=== PATIENT | male | born 1935 | race Caucasian/White ===

== ENCOUNTER 2018-10-05 11:09 | Inpatient (IN) | payer BC, MEDICARE ==
[~2018-10-05] VITALS: Ht 167.6 cm; Wt 54.9 kg
[2018-10-05 11:40] LABS: BASOPHILS # (AUTO) 0.1 /CMM (0.0-0.2); BASOPHILS % (AUTO) 0.8 % (0.0-2.0); EOSINOPHILS % (AUTO) 2.2 % (0.0-6.0); HEMATOCRIT 45 % (39-51); HEMOGLOBIN 14.7 g/dL (13.5-17.5); LYMPHOCYTES # (AUTO) 0.9 /CMM (0.8-4.8); LYMPHOCYTES % (AUTO) 11.2 % (20.0-44.0); MEAN CORPUSCULAR HGB CONC 32 g/dl (31.0-36.0); MEAN CORPUSCULAR VOLUME 93 fL (80-96); MONOCYTES # (AUTO) 0.7 /CMM (0.1-1.30); MONOCYTES % (AUTO) 8.1 % (2.0-12.0); NEUTROPHILS # (AUTO) 6.5 /CMM (1.8-8.9); NEUTROPHILS % (AUTO) 77.7 % (43.0-81.0); PLATELET COUNT (AUTO) 236 /CMM (150-450); RED BLOOD CELL COUNT(AUTO) 4.87 MIL/uL (4.5-6.0); WHITE BLOOD COUNT (AUTO) 8.4 K/uL (4.3-11.0)
--- NOTE | 2018-10-05 11:42 | NUR ---
1130 Initial contact with pt no acute distress s/p mechanical fall from home per RA no LOC , pt on Plavix daily denies chest pain, SOB , placed on nurse monitoring waiting for MD beebe - at bedside
[2018-10-05 11:57] LABS: ALANINE AMINOTRANSFERASE 50 U/L (12-78); ALKALINE PHOSPHATASE 103 U/L (46-116); ASPARTATE AMINOTRANSFERASE 60 U/L (15-37); BILIRUBIN,DIRECT 0.7 mg/dL (0.0-0.2); BILIRUBIN,TOTAL 1.2 mg/dL (0.2-1.0); CALCIUM, SERUM 8.5 mg/dL (8.5-10.1); CARBON DIOXIDE 31 mmol/L (21-32); CHLORIDE 103 mmol/L (98-107); GLUCOSE 86 mg/dL (74-106); POTASSIUM 4.9 mmol/L (3.5-5.1); SODIUM SERUM 141 mmol/L (136-145); TOTAL PROTEIN, SERUM 7.1 g/dL (6.4-8.2); UREA NITROGEN, BLOOD 39 mg/dL (7-18)
[2018-10-05] MEDS ORDERED: Z GUARD REMEDY 2 OZ OINT TP PRN (13:30)
[2018-10-05] MEDS ORDERED: HYDROCODONE/APAP 5/325MG 1 EACH TABLET PO PRN (13:30)
[2018-10-05] MEDS ORDERED: ACETAMINOPHEN 325 MG TABLET PO PRN (13:30)
[2018-10-05] MEDS ORDERED: MAG HYDROX/AL HYDROX/SIMETH 30 ML UDC PO PRN (13:30)
[2018-10-05] MEDS ORDERED: ONDANSETRON HCL/PF 4 MG/2 ML VIAL IVP PRN (13:30)
[2018-10-05] MEDS ORDERED: MAGNESIUM HYDROXIDE 30 ML UDC PO PRN (13:30)
--- NOTE | 2018-10-05 13:38 | NUR ---
urine sample sent to lab
[2018-10-05 14:22] LABS: APPEARANCE,URINE CLEAR (CLEAR); BILIRUBIN,URINE 2+ (NEGATIVE); BLOOD, URINE NEGATIVE Ery/uL (NEGATIVE); COLOR,URINE YELLOW (YELLOW); KETONES,URINE TRACE (NEGATIVE); LEUKOCYTE ESTERASE ,URINE NEGATIVE (NEGATIVE); NITRITE, URINE NEGATIVE (NEGATIVE); PROTEIN,URINE 2+ mg/dl (NEGATIVE); UGLUCOSE NEGATIVE (NEGATIVE); UROBILINOGEN,URINE >=8.0 EU/dL (0.2)
--- NOTE | 2018-10-05 14:30 | NUR ---
RN NOTES RECEIVED PATIENT FROM ER, ACCOMPANIED BY ER NURSE AND TECH. PATIENT TRANSFERRED TO BED, MADE CLEAN, COMFORTABLE AND WARMTH, VITAL SIGNS TAKEN AND NOTED. NO IV FLUID ON TRANSFER, PATIENT ALERT AND ORIENTED X4, ABLE TO MAKE NEEDS KNOWN, ON ROOM AIR, BREATHING EVEN AND UNLABORED,SATURATING WELL, ATTACHED TO EXTERNAL RAIL ENGINEER: V PACING HR AT 60'S, IV LINE ON THE RFA G 20: INTACT AND IN PLACE, PATENT ON FLUSHING, PATIENT SKIN ASSESSMENT DONE, ORIENTED TO UNIT AND USE OF CALL LIGHT, ENCOURAGE TO CALL FOR ASSISTANCE, CALL LIGHT PLACE WITHIN EASY REACH, SAFETY MEASURES PUT IN PLACE, SRX2 UP, BED IN LOW AND LOCKED POSITION, WILL WAIT AND CARRY OUT ADMITTING ORDERS
[2018-10-05 14:35] LABS: BACTERIA,URINE None seen /HPF (None Seen); RBC,URINE 0-2 /HPF (0-2); SQUAMOUS EPITHELIAL CELL,UR 0-2 /HPF (None Seen); WBC,URINE 0-2 /HPF (0-3)
--- NOTE | 2018-10-05 15:40 | NUR ---
RN NOTES INFORMED ATTENDING MD THAT PATIENT HAS BEEN TRANSFERRED TO THE UNIT FROM THE ER, INFORMED MD ABOUT PATIENT'S WISHES REGARDING CODE STATUS, ORDERED AND NOTED. ALSO INFORM MD ON ADMITTING ORDERS.
[2018-10-05 16:00] VITALS: BP 137/79
[2018-10-05] MEDS: IV NS 0.9% 1,000 ML IV PRN (16:09)
--- NOTE | 2018-10-05 19:23 | NUR ---
RN NOTES ENDORSED PATIENT FOR CONTINUITY OF CARE. NO ACUTE CHANGES WITHIN THE SHIFT. ALL NURSING NEEDS ATTENDED AND MET.
--- NOTE | 2018-10-05 19:45 | NUR ---
NET DEVELOPER SOFTWARE ENGINEER C NOTES RECEIVED PT ON BED. ON ROOM AIR NO RESPIRATORY DISTRESS. A/O X 3. ON TELE MONITOR VPACING. IV ACCESS ON RFA G20 NS @75CC/HR. HEAD OF BED ELEVATED. SIDE RAILS UP. CALL LIGHT WITHIN REACH. BED ALARM ON. WILL CONTINUE TO MONITOR PT CLOSELY.
[2018-10-05 20:00] VITALS: BP 140/70
[2018-10-06] VITALS: BP 148/78
[2018-10-06] MEDS: IV NS 0.9% 1,000 ML IV PRN (03:57)
[2018-10-06 04:00] VITALS: BP 144/81
--- NOTE | 2018-10-06 06:47 | NUR ---
CRIMINAL JUSTICE SOCIAL WORKER NOTES NO ACUTE CHANGES NOTED THROUGHOUT THE SHIFT. PROVIDED COMFORT AND SAFETY. WILL ENDORSE TO THE AM NURSE FOR CONTINUITY OF CARE.
--- NOTE | 2018-10-06 07:00 | NUR ---
CRIME LABORATORY ANALYST OPENING NOTES RECEIVED PATIENT IN BED AWAKE AND ALERT X4. NO SIGNS OR SYMPTOMS OF RESPIRATORY DISTRESS OR ACUTE PAIN NOTED AT THIS TIME. NO DIZZINESS OR WEAKNESS NOTED. IVF RUNNING @75ML/HR IN RFA # 20 GAUGE. ABLE TO MAKE NEEDS KNOWN AND ALL MET . SAFETY PRECAUTIONS IN[LACE CALL LIGHT WITHIN REACH WILL KAYLEE
[2018-10-06 07:15] LABS: BASOPHILS % (AUTO) 0.7 % (0.0-2.0); EOSINOPHILS % (AUTO) 3.8 % (0.0-6.0); HEMATOCRIT 43 % (39-51); HEMOGLOBIN 13.9 g/dL (13.5-17.5); LYMPHOCYTES # (AUTO) 1.1 /CMM (0.8-4.8); LYMPHOCYTES % (AUTO) 15.8 % (20.0-44.0); MEAN CORPUSCULAR HGB CONC 32 g/dl (31.0-36.0); MEAN CORPUSCULAR VOLUME 93 fL (80-96); MONOCYTES # (AUTO) 0.6 /CMM (0.1-1.30); MONOCYTES % (AUTO) 7.8 % (2.0-12.0); NEUTROPHILS # (AUTO) 5.2 /CMM (1.8-8.9); NEUTROPHILS % (AUTO) 71.9 % (43.0-81.0); PLATELET COUNT (AUTO) 212 /CMM (150-450); RED BLOOD CELL COUNT(AUTO) 4.68 MIL/uL (4.5-6.0); WHITE BLOOD COUNT (AUTO) 7.2 K/uL (4.3-11.0)
[2018-10-06 07:16] LABS: CHOLESTEROL 95 mg/dL (<200); HDL CHOLESTEROL 19 mg/dL (40-60); LDL 72 mg/dL (0-99); TRIGLYCERIDES 78 mg/dL (30-150)
[2018-10-06 07:18] LABS: CALCIUM, SERUM 8.3 mg/dL (8.5-10.1); CARBON DIOXIDE 29 mmol/L (21-32); CHLORIDE 107 mmol/L (98-107); CREATININE 1.8 mg/dL (0.6-1.3); GLUCOSE 70 mg/dL (74-106); MAGNESIUM 1.9 mg/dL (1.8-2.4); PHOSPHORUS 2.6 mg/dL (2.5-4.9); POTASSIUM 4.5 mmol/L (3.5-5.1); SODIUM SERUM 142 mmol/L (136-145); UREA NITROGEN, BLOOD 27 mg/dL (7-18)
[2018-10-06 08:00] VITALS: BP_SYST 140; BP_SYST 163; BP_DIAS 70; BP_DIAS 72
--- NOTE | 2018-10-06 08:28 | NUR ---
WOUND CARE CONSULT.SEEN PATIENT AT BEDSIDE,PATIENT HAS MULTIPLE BRUISES AND ABRASION ON BOTH UPPER ARM S\P FALL,RECOMMENDED APPLY TRIPLE ATB COVER WITH EMULSION DRESSING THEN COVER WITH 4X4 GAUZE AND WRAP WITH KERLIX,WILL SEE NEEDED Addendum: 10/06/18 at 0841 by MARY FERRARA RN Amended: Links added.
--- NOTE | 2018-10-06 09:16 | NUR ---
INTENSIVE CARE ANAESTHETIST NOTES DR BACK AT BEDSIDE SPEAKING WITH PATIENT LONG TOLERATING FLUIDS AND WALKING PATIENT ABLE TO BE DISCHARGED IN THE AFTERNOON
[2018-10-06] MEDS ORDERED: IV NS 0.9% 1,000 ML IV SCH (10:00)
[2018-10-06 11:22] VITALS: BP_SYST 135; BP_SYST 157; BP_SYST 97; BP_DIAS 60; BP_DIAS 73; BP_DIAS 82
--- NOTE | 2018-10-06 11:25 | NUR ---
ORTHOSTATIC B/P OBTAINED PER ORDER
--- NOTE | 2018-10-06 13:51 | NUR ---
DIRECTOR PATIENT DISCHARGE PATIENT ORDERS FOR DISCHARGE TO HOME WITH . IV REMOVED CATH INTACT. FOLLOW UP WITH PCP. VITALS 130/67 61 20 98% ON RA.
--- NOTE | 2018-10-06 13:56 | NUR ---
TRUCK DRIVER HEAVY PHOTOS TAKEN @ NOC LESS THAN 24 HRS.
== END 2018-10-06 13:50 | disposition home or self-care (01) | DRG 684 ==
LOC: ER 11:10 → TELE1 14:18 → MEDSG1 10-06 09:49
PROVIDERS: ADMIT Internal Medicine; ATTEND Internal Medicine
DX: N17.0 Acute kidney failure with tubular necrosis (principal); E86.0 Dehydration; Z95.2 Presence of prosthetic heart valve; Z95.0 Presence of cardiac pacemaker; W01.0XXA Fall on same level from slipping, tripping and stumbling without subsequent striking against object, initial encounter; Y92.002 Bathroom of unspecified non-institutional (private) residence as the place of occurrence of the external cause; Z85.01 Personal history of malignant neoplasm of esophagus; Z90.49 Acquired absence of other specified parts of digestive tract; Z88.1 Allergy status to other antibiotic agents; Z90.3 Acquired absence of stomach [part of]; N18.9 Chronic kidney disease, unspecified; Z95.1 Presence of aortocoronary bypass graft
CPT/HCPCS: 36415; 70450-TC; 71045-TC; 80048-TC; 80061-TC; 80076-TC; 81000-TC; 83605-TC; 83735-TC; 83880; 84100-TC; 84484-TC; 85025-TC; 85730-TC; 87040-TC; 87081-TC; A4606; G0378; J7030; Z7610